=== PATIENT | female | born 1935 | race Caucasian/White ===

== ENCOUNTER 2019-09-03 | Observation (INO) | payer MEDICARE, BC | END 2019-09-04 15:31 | disposition home or self-care (01) | PROVIDERS: ADMIT Hospitalist | CPT/HCPCS: 93005 ×2; 96372 ×2; 96375; 96376; 96365; 99285; 36415; 93306; 93270; 80061; 80053; 84443; 83735 ×2; 84484; 85025; 85610; 85730; 71046; G0378 ×2; J1644 ×2; J3475 ==

== ENCOUNTER 2024-03-03 20:29 | Emergency (ER) | payer MEDICARE, BC, OTHER ==
[2024-03-03 20:44] VITALS: TEMP 98.3
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
[2024-03-04 00:15] VITALS: BP 104/68; PULSE 67; RESP 17
== END 2024-03-04 00:58 | disposition home or self-care (01) ==
LOC: EC 20:29
DX: S20.219A Contusion of unspecified front wall of thorax, initial encounter (principal); V43.52XA Car driver injured in collision with other type car in traffic accident, initial encounter
CPT/HCPCS: 71046; 99285